=== PATIENT | female | born 1965 | race Asian ===

== ENCOUNTER → 2016-08-18 | Outpatient (CLI) | payer MEDICAID | END | disposition home or self-care (01) | LOC: LABWHC1 15:03 | PROVIDERS: ATTEND Internal Medicine Endocrinology, Diabetes & Metabolism | DX: E89.0 Postprocedural hypothyroidism (principal) | CPT/HCPCS: 36415; 82306; 84439; 84443; 84481 ==

== ENCOUNTER → 2016-11-24 | Outpatient (CLI) | payer MEDICAID ==
[2016-11-24 15:41] LABS: Basophils # (A) 0.1 k/uL (0-0.2); Basophils % (A) 1 %; CH 27.1; Eosinophils # (A) 0.4 k/uL (0-0.7); Eosinophils % (A) 5 %; HCT 43.7 % (34.0-46.0); HDW 2.25; HGB 14.1 gm/dL (11.4-16.0); Luc # (Auto) 0.18; Luc % (Auto) 2; Lymphocytes # (A) 2.4 k/uL (1.0-4.8); Lymphocytes % (A) 29 %; MCH 26.7 pg (25.0-35.0); MCHC 32.4 g/dL (31.0-37.0); MCV 82.4 fL (80.0-100.0); Mean Platelet Volume 7.7; Monocytes # (A) 0.5 k/uL (0-1.0); Monocytes % (A) 6 %; Neutrophils # (A) 4.6 k/uL (1.3-7.7); Neutrophils % (A) 57 %; RDW 13.6 % (11.5-15.5); WBC 8.1 k/uL (3.8-10.6); WBC (Perox) 8.05
[2016-11-24 16:00] LABS: ALT 49 U/L (9-52); AST 39 U/L (14-36); Alkaline Phosphatase 115 U/L (38-126); Anion Gap 13 mmol/L; Blood Urea Nitrogen 18 mg/dL (7-17); Calcium 10.2 mg/dL (8.4-10.2); Carbon Dioxide 25 mmol/L (22-30); Chloride 102 mmol/L (98-107); Cholesterol 177 mg/dL (<200); Glucose 90 mg/dL (74-99); HDL Cholesterol 104 mg/dL (40-60); Non-African American GFR(MDRD) >60 (>60 ml/min/1.73 sqM); Potassium 3.7 mmol/L (3.5-5.1); Sodium 140 mmol/L (137-145); Total Bilirubin 0.9 mg/dL (0.2-1.3); Total Protein 8.2 g/dL (6.3-8.2); Triglycerides 85 mg/dL (<150)
== END | disposition home or self-care (01) ==
LOC: LABWHC1 15:23
PROVIDERS: ATTEND Internal Medicine Endocrinology, Diabetes & Metabolism
DX: E78.00 Pure hypercholesterolemia, unspecified (principal); I10 Essential (primary) hypertension; E89.0 Postprocedural hypothyroidism
CPT/HCPCS: 36415; 80053; 80061; 84439; 84443; 85025

== ENCOUNTER → 2017-01-26 | Outpatient (CLI) | payer MEDICAID ==
--- NOTE | 2017-01-26 15:28 | XR ---
EXAMINATION TYPE: XR chest 2V DATE OF EXAM: 01/26/2017 COMPARISON: Prior chest x-ray 09/18/[address] 11/08/2014 HISTORY: Shortness of breath, chest pain TECHNIQUE: Frontal and lateral views of the chest are obtained. FINDINGS: There is no focal air space opacity, pleural effusion, or pneumothorax seen. The cardiac silhouette size is within normal limits. Spinal curvature is again noted. Pleural-based density at th e right lung apex superolaterally is stable. The osseous structures are intact. IMPRESSION: No acute cardiopulmonary process.
== END | disposition home or self-care (01) ==
LOC: RADXRMAIN 14:46
PROVIDERS: ATTEND Family Medicine
DX: R05 Cough (principal)
CPT/HCPCS: 71020

== ENCOUNTER 2017-02-07 07:10 | Day surgery (SDC) | payer MEDICAID ==
[2017-02-04 11:52] VITALS: BMI 23.9
[2017-02-07 07:48] VITALS: RESP 16; TEMP 98.3
[2017-02-07] MEDS ORDERED: SODIUM CHLORIDE 0.9% 500 ML IV ONE (07:58)
[2017-02-07] MEDS ORDERED: fentaNYL (PF) 50 MCG/ML 2 ML AMP ONE (08:21)
[2017-02-07] MEDS ORDERED: MIDAZOLAM 2 MG/2 ML VIAL ONE (08:22)
[2017-02-07] MEDS: MIDAZOLAM 2 MG/2 ML VIAL IVP ONE ×2 (08:50→08:56)
[2017-02-07] MEDS: fentaNYL (PF) 50 MCG/ML 2 ML AMP IVP ONE ×2 (08:50→08:56)
[2017-02-07] MEDS: BENZOCAINE SPRAY 1 SPRAY CAN MUCOUS MEM ONE ×2 (08:50→08:56)
[2017-02-07] MEDS ORDERED: MIDAZOLAM 2 MG/2 ML VIAL IVP ONE (08:58)
[2017-02-07 11:22] VITALS: BP 103/56; PULSE 49
--- NOTE | 2017-02-07 14:21 | ECHOT ---
TRANSESOPHAGEAL ECHOCARDIOGRAM DATE OF SERVICE: 02/07/2017 PERFORMING PHYSICIAN: CELI DOWELL MD, MITERING MACHINE OPERATOR. PROCEDURE PERFORMED: TRANSESOPHAGEAL ECHOCARDIOGRAM. INDICATION: This is a very pleasant 51-year-old female patient who suffered from TIA and a transesophageal echocardiogram to rule out any cardiac source of embolization. COMPLICATION: None. LEVEL OF SEDATION: Moderate with a sedation length of 20 minutes. PROCEDURE DESCRIPTION: After obtaining an informed consent, explaining the procedure, benefits, risks, complications and alternatives, the patient was brought to the transesophageal echocardiogram suite. A pulse oximetry and heart rate monitors were attached to the patient prior to the procedure. The patient's throat was sprayed using lidocaine locally. Following that, the patient was turned into left lateral position. A bite guard was placed and the patient was then sedated with the above doses of Versed and fentanyl in divided doses. Following that, the transesophageal echocardiogram probe was advanced through the bite guard into the mid esophagus where 2-D echocardiogram images as well as color Doppler images of various cardiac structures were obtained. We evaluated the interatrial septum using 2-D echocardiogram, color Doppler, and contrast study. The procedure was completed. There were no complications. FINDINGS: The left ventricular dimension and systolic function appear to be within normal limits with the ejection fraction appeared to be in the range of 55% to 60% with a normal wall motion. The right ventricle is of normal size and function but the left atrium appeared to be within normal limits for dimension with ( ) appendage appeared to be intact without any evidence of shunt. The left atrial appendage appeared to be intact without any evidence of thrombus. The intraatrial septum appeared to be intact without any evidence of shunt. The aortic valve is trileaflet valve without stenosis or regurgitation. The mitral valve seems to be normal with trace MR, tricuspid valve and pulmonic valve. CONCLUSION: 1. There is no evidence of cardiac source of embolization. 2. Intact interatrial septum without any evidence of shunt. 3. Normal left atrial appendage without any evidence of thrombus. 4. Normal left ventricular dimension and systolic function. 5. Normal cardiac chamber sizes. 6. Normal intracardiac valve. 7. No evidence of pericardial effusion. MTDD
== END 2017-02-07 11:00 | disposition home or self-care (01) ==
LOC: CATHCVL 07:10
PROVIDERS: ATTEND Internal Medicine Interventional Cardiology
DX: G45.9 Transient cerebral ischemic attack, unspecified (principal); I74.9 Embolism and thrombosis of unspecified artery; I10 Essential (primary) hypertension; E78.5 Hyperlipidemia, unspecified; Z82.49 Family history of ischemic heart disease and other diseases of the circulatory system; Z79.82 Long term (current) use of aspirin; Z79.899 Other long term (current) drug therapy
CPT/HCPCS: 93312; 93320; 93325; J2250; J3010

== ENCOUNTER → 2017-07-25 | Outpatient (CLI) | payer MEDICAID ==
[2017-07-25 09:59] LABS: Appearance,Urine Clear (Clear); Bilirubin,Urine Negative (Negative); Blood,Urine Negative (Negative); Color,Urine Yellow; Glucose,Urine (UA) Negative (Negative); Ketones,Urine Negative (Negative); Leukocyte Esterase,Urine Negative (Negative); Nitrite,Urine Negative (Negative); Protein,Urine Negative (Negative); Specific Gravity,Urine 1.014 (1.001-1.035); Urobilinogen,Urine <2.0 mg/dL (<2.0)
[2017-07-25 10:03] LABS: HCT 44.9 % (34.0-46.0); HGB 14.3 gm/dL (11.4-16.0); MCH 26.3 pg (25.0-35.0); MCHC 31.9 g/dL (31.0-37.0); MCV 82.3 fL (80.0-100.0); Mean Platelet Volume 7.5; Platelet Count 236 k/uL (150-450); RBC 5.46 m/uL (3.80-5.40); RDW 13.6 % (11.5-15.5); WBC 6.8 k/uL (3.8-10.6)
[2017-07-25 10:06] LABS: Prothrombin Time 10.1 sec (9.0-12.0)
--- NOTE | 2017-07-25 10:11 | XR ---
EXAMINATION TYPE: XR chest 2V DATE OF EXAM: 07/25/2017 COMPARISON: 01/26/2017, 11/08/2014 TECHNIQUE: PA and lateral views submitted. HISTORY: Presurgical FINDINGS: The lungs are clear and there is no pneumothorax, pleural effusion, or focal pneumonia. There is a stable appearing apical pleural-based mass within the right upper lobe. Pleural-based density also no thee on the left within the apex. Findings are stable dating back to 2014. Curvature the spine noted. No overt failure. IMPRESSION: 1. No acute process. Stable apical pleural-based mass previously described by CT scan unchanged from previous x-ray.
[2017-07-25 11:13] LABS: Anion Gap 11 mmol/L; Blood Urea Nitrogen 17 mg/dL (7-17); Carbon Dioxide 31 mmol/L (22-30); Chloride 101 mmol/L (98-107); Potassium 4.3 mmol/L (3.5-5.1); Sodium 143 mmol/L (137-145)
[2017-07-25 11:18] LABS: T4, Free (Free Thyroxine) 1.41 ng/dL (0.78-2.19)
== END | disposition home or self-care (01) ==
LOC: LABWHC1 08:57
PROVIDERS: ATTEND Internal Medicine Endocrinology, Diabetes & Metabolism
DX: R91.8 Other nonspecific abnormal finding of lung field (principal); E89.0 Postprocedural hypothyroidism; E78.2 Mixed hyperlipidemia; E55.9 Vitamin D deficiency, unspecified; L72.3 Sebaceous cyst
CPT/HCPCS: 36415; 71046; 80051; 81003; 82306; 82565; 84439; 84443; 84481; 84520; 85027; 85610; 85730; 86900; 86901; 87070; 93005

== ENCOUNTER → 2017-08-15 | Day surgery (SDC) | payer MEDICAID ==
[2017-08-12 10:12] VITALS: BMI 23.9
[~2017-08-15] MED LIST: BUPIVACAINE (PF) 0.5% 30 ML VIAL SQ ONE; DEXAMETHASONE SOD PHOSPHATE 10 MG/ML 1 ML VIAL IV ONE; LACTATED RINGERS 1,000 ML IV SCH; LIDOCAINE 1% (PF) 10MG/ML VIAL SQ ONE; LIDOCAINE 1% 20 ML VIAL (10MG/ML) FOR IV START INTRADERMA PRN; MIDAZOLAM 2 MG/2 ML VIAL ONE; MORPHINE SULFATE 2 MG/ML SYRINGE IV PRN; PROPOFOL 10 MG/ML 20 ML VIAL IV ONE; Pre Op ABX Message 1 EACH MISC MISCELLANE ONE; fentaNYL (PF) 50 MCG/ML 2 ML AMP ONE
[2017-08-15 12:41] VITALS: TEMP 97.8
[2017-08-15 13:40] VITALS: RESP 16
[2017-08-15 14:24] VITALS: BP 122/78; PULSE 60
--- NOTE | 2017-08-16 10:23 | OP ---
OPERATIVE REPORT SURGERY DATE: 08/15/2017 PREOPERATIVE DIAGNOSES: 1. Left carpal tunnel syndrome. 2. Left index trigger finger. 3. Left middle trigger finger. FINAL DIAGNOSES: 1. Left carpal tunnel syndrome. 2. Left index trigger finger. 3. Left middle trigger finger. PROCEDURES: 1. Left carpal tunnel release. 2. Left index finger trigger release. 3. Left middle trigger finger release. GROSS PATHOLOGY: Preoperatively there was a mass at the base of the middle finger which was suspected to be a potential ganglion cyst. It turned out to be simply thickened A1 michelle and therefore there was no ganglion cyst and there was nothing to resect per se and no specimen was delivered. DESCRIPTION OF PROCEDURE: The patient is brought to the Operating Room. Under satisfactory anesthesia, in the supine position, the operative field is prepped and draped in the usual fashion. A one inch incision is made just ulnar to the thenar crease, just distal to the distal palmar crease. This is carried down through the subcutaneous tissue. Electrocautery is utilized to control any small vessels that may be oozing around the skin incision. Dissection is then carried down to the expansion of the palmaris longus, where the expansion is split in the line of its fibers and dissection is then carried down to the transverse carpal ligament. The ligament is then carefully transected until the nerve can be brought into view. Then with the nerve retracted, the distal and proximal portions of the carpal canal are released with a Metzenbaum scissors. Having completed this, the area is then thoroughly irrigated. The skin incision and wound edges are injected with Marcaine. At the approximation is done with interrupted nylon sutures in a vertical mattress fashion. The patient is then transferred to the Recovery Room in good condition. The following procedure was done identically for both the left middle and left index finger. A transverse incision was made in the proximal skin crease of the middle finger. Blunt dissection was taken through the subcutaneous tissue to identify the neurovascular bundles. They were kept in view and gently retracted out of harms way while a longitudinal release of the A1 michelle was performed. The flexor pollicis longus was examined and slight swelling was noted but the tendon was intact. The tendon was gently retracted from the wound to ensure no adhesion. The wound was then thoroughly irrigated, tourniquet released. Hemostasis was acquired and the skin was closed with 5-0 nylon suture. Soft bulky dressing applied. The patient was taken to the recovery room in satisfactory condition. HAI / ADALI: [id number] /
== END | disposition home or self-care (01) ==
LOC: OR 11:14
PROVIDERS: ATTEND Orthopaedic Surgery Hand Surgery
DX: G56.02 Carpal tunnel syndrome, left upper limb (principal); M65.322 Trigger finger, left index finger; M65.332 Trigger finger, left middle finger; I10 Essential (primary) hypertension; E78.00 Pure hypercholesterolemia, unspecified; E03.9 Hypothyroidism, unspecified; M85.80 Other specified disorders of bone density and structure, unspecified site; I51.9 Heart disease, unspecified; Z86.73 Personal history of transient ischemic attack (TIA), and cerebral infarction without residual deficits; Z79.82 Long term (current) use of aspirin; Z79.899 Other long term (current) drug therapy; Z79.890 Hormone replacement therapy
CPT/HCPCS: 64721; 26055 ×2; J2250; J1100; J3010; J2001; J2704

== ENCOUNTER → 2017-09-07 | Outpatient (CLI) | payer MEDICAID ==
[2017-09-07 10:47] LABS: Cholesterol 277 mg/dL (<200); HDL Cholesterol 82 mg/dL (40-60); LDL Cholesterol,Calculated 140 mg/dL (0-99); Triglycerides 276 mg/dL (<150)
== END | disposition home or self-care (01) ==
LOC: LABWHC1 10:12
PROVIDERS: ATTEND Family Medicine
DX: E78.00 Pure hypercholesterolemia, unspecified (principal)
CPT/HCPCS: 36415; 80061

== ENCOUNTER → 2017-09-07 | Outpatient (CLI) | payer MEDICAID ==
[2017-09-07 10:39] LABS: HCT 39.9 % (34.0-46.0); HGB 13.1 gm/dL (11.4-16.0); MCH 25.5 pg (25.0-35.0); MCHC 32.7 g/dL (31.0-37.0); MCV 77.9 fL (80.0-100.0); Mean Platelet Volume 7.9; Platelet Count 237 k/uL (150-450); RBC 5.12 m/uL (3.80-5.40); RDW 13.4 % (11.5-15.5); WBC 8.1 k/uL (3.8-10.6)
[2017-09-07 10:47] LABS: Anion Gap 14 mmol/L; Blood Urea Nitrogen 18 mg/dL (7-17); Carbon Dioxide 26 mmol/L (22-30); Chloride 102 mmol/L (98-107); Sodium 142 mmol/L (137-145)
== END | disposition home or self-care (01) ==
LOC: LABPAT 10:10
PROVIDERS: ATTEND Internal Medicine Interventional Cardiology
DX: Z01.812 Encounter for preprocedural laboratory examination (principal); R07.9 Chest pain, unspecified
CPT/HCPCS: 80051; 82565; 84520; 85027

== ENCOUNTER → 2017-09-12 | Day surgery (SDC) | payer MEDICAID ==
[2017-09-07 15:36] VITALS: BMI 24.7
[~2017-09-12] MED LIST changes: +ALPRAZolam 0.25 MG TAB PO PRN; +ASPIRIN 325 MG TAB PO ONE; -BUPIVACAINE (PF) 0.5% 30 ML VIAL SQ ONE; -DEXAMETHASONE SOD PHOSPHATE 10 MG/ML 1 ML VIAL IV ONE; +HEPARIN SODIUM 1,000 UN/ML (10ML VL) IV ONE; +IOPAMIDOL-370 125ML BTL INJ ONE; -LACTATED RINGERS 1,000 ML IV SCH; -LIDOCAINE 1% (PF) 10MG/ML VIAL SQ ONE; -LIDOCAINE 1% 20 ML VIAL (10MG/ML) FOR IV START INTRADERMA PRN; +LIDOCAINE 2% INJ 20 MG/ML SQ ONE; -MIDAZOLAM 2 MG/2 ML VIAL ONE; -MORPHINE SULFATE 2 MG/ML SYRINGE IV PRN; -PROPOFOL 10 MG/ML 20 ML VIAL IV ONE; -Pre Op ABX Message 1 EACH MISC MISCELLANE ONE; +RX INFO: IV CONTRAST WAS GIVEN 1 EACH MISC MISCELLANE PRN; +SODIUM CHLORIDE 0.9% 1,000 ML IV ONE; +SODIUM CHLORIDE 0.9% 1,000 ML IV SCH; +SODIUM CHLORIDE 0.9% 1,000 ML in EMPTY BAG 1 BAG IV ONE; -fentaNYL (PF) 50 MCG/ML 2 ML AMP ONE
[2017-09-12 10:52] VITALS: TEMP 98
[2017-09-12] MEDS: MIDAZOLAM 2 MG/2 ML VIAL IV ONE ×2 (11:23→11:29)
[2017-09-12] MEDS: VERAPAMIL SYRINGE (5 MG/10 ML) INTRAARTER ONE ×2 (11:30→11:38)
--- NOTE | 2017-09-12 12:37 | CC ---
CARDIAC CATHETERIZATION REPORT DATE OF SERVICE: 09/12/2017 PERFORMING PHYSICIAN: Vladimir Martel MD, cctv technician. PROCEDURE PERFORMED: 1. Selective right and left coronary angiogram. 2. Left heart catheterization. INDICATION: This is a pleasant 51-year-old female patient who continues to have chest discomfort in spite of normal stress test. Because of that, a heart catheterization was recommended. APPROACH: Right radial artery. COMPLICATION: None. LEVEL OF SEDATION: Moderate with sedation length of 13 minutes. PROCEDURE DESCRIPTION: After obtaining an informed consent, the patient was brought to cardiac industrial laborer. The right radial artery was cannulated using micropuncture technique and a micropuncture wire passed easily, then I placed a 6-Hungarian sheath in the right radial artery. After that, I did selective right and left coronary angiogram using JR4 and JL3.5 catheters. After that I did left heart catheterization using the JR4, which flipped into the LV then I did pullback per protocol. The procedure was completed without any complication. SELECTIVE CORONARY ANGIOGRAM: 1. The RCA is a large caliber vessel and it is a dominant vessel. It is angiographically normal. It bifurcates into PDA and PLV branches both are angiographically normal. 2. The left main is angiographically normal. It bifurcates into the circumflex and left anterior descending artery. 3. The left circumflex is a large caliber vessel. It is a nondominant vessel. The proximal circ is angiographically normal. The mid circ is normal and gives rise into a large OM branch which bifurcates into 2 branches both are angiographically normal and the circ continued after that as a small-caliber vessel in the AV groove. 4. The LAD: The proximal LAD appeared to be angiographically normal. It gives rise into a large diagonal branch which is high diagonal which seems to be angiographically normal. The LAD also gives rise into a second diagonal branch which seems to be angiographically normal. The mid and distal portion are angiographically normal. 5. HEMODYNAMIC: The left ventricular end-diastolic pressure was 12 mmHg and no gradient was identified across the aortic valve. CONCLUSION: 1. Normal coronary angiogram. 2. Normal left ventricular systolic indication. MMODL / IJN: [id number] /
--- NOTE | 2017-09-12 12:37 | LTR ---
September 12, 2017 Re: Shawna Castaneda Dear Dr. Sullivan: I had the pleasure of seeing Shawna Castaneda at [facility]. She continues to have chest discomfort, which seems to be quite concerning to her. She is quite concerned about severe underlying coronary artery disease and for that reason I did perform a heart catheterization and that showed normal coronaries. I want to thank you for allowing us to participate in her care and please do not hesitate to call if you have any question or concern. Sincerely, MD HAI Romero / ADALI: [id number] /
[2017-09-12 12:47] VITALS: RESP 18
[2017-09-12 12:49] VITALS: BP 103/74; PULSE 64
== END ==
LOC: CATHCVL 10:33
PROVIDERS: ATTEND Internal Medicine Interventional Cardiology
DX: R07.89 Other chest pain (principal); I10 Essential (primary) hypertension; E78.5 Hyperlipidemia, unspecified; Z86.73 Personal history of transient ischemic attack (TIA), and cerebral infarction without residual deficits; Z82.49 Family history of ischemic heart disease and other diseases of the circulatory system; R10.13 Epigastric pain; M54.9 Dorsalgia, unspecified; R61 Generalized hyperhidrosis; Z79.82 Long term (current) use of aspirin; Z79.899 Other long term (current) drug therapy
CPT/HCPCS: 93458; C1894; C1769; J2001; J2250; J1644; Q9967

== ENCOUNTER → 2017-10-25 | Outpatient (CLI) | payer MEDICAID ==
[2017-10-25 16:23] LABS: T4, Free (Free Thyroxine) 1.3 ng/dL (0.78-2.19)
== END | disposition home or self-care (01) ==
LOC: LABWHC1 15:06
PROVIDERS: ATTEND Internal Medicine Endocrinology, Diabetes & Metabolism
DX: E89.0 Postprocedural hypothyroidism (principal)
CPT/HCPCS: 36415; 84439; 84443

== ENCOUNTER 2018-04-07 13:31 | Emergency (ER) | payer MEDICAID, OTHER ==
--- NOTE | 2018-04-07 14:20 | ED ---
General Adult HPI - General Chief complaint: Head Injury Stated complaint: Head injury Time Seen by Provider: 04/07/18 13:56 Source: patient, RN notes reviewed Mode of arrival: ambulatory Limitations: no limitations - History of Present Illness Initial comments: Patient is a 52 year old female with history of TIA who presents to the emergency department with complaints of hitting her head against a wall 3 days ago at work. She developed headache, drowsiness, dizziness, nausea and slight left-sided neck pain. She has tenderness over the left side of her head where she hit it. She takes aspirin 81 mg; no other blood thinners. Patient denies loss of consciousness, fever, chills, shortness of breath, chest pain, back pain , abdominal pain, vomiting, numbness or tingling, constipation or diarrhea, visual changes, or any other complaints. - Related Data Home Medications Medication Instructions Recorded Confirmed Calcium Carbonate [Calcium] 600 mg PO HS 09/18/15 09/12/17 Cholecalciferol [Vitamin D3] 2,000 unit PO HS 09/18/15 09/12/17 Hydrochlorothiazide [Hydrodiuril] 12.5 mg PO HS 09/18/15 09/12/17 Levothyroxine Sodium [Tirosint] 88 mcg PO QAM 09/18/15 09/12/17 Lisinopril 10 mg PO HS 02/04/17 09/12/17 Multivit with Calcium,Iron,Min 1 each PO DAILY 02/04/17 09/12/17 [Women's Multivitamin] Biotin 10,000 mcg PO DAILY 09/07/17 09/12/17 Previous Rx's Medication Instructions Recorded Aspirin EC [Ecotrin Low Dose] 81 mg PO DAILY #30 tablet. 09/19/15 Allergies Allergy/AdvReac Type Severity Reaction Status Date / Time No Known Allergies Allergy Verified 04/07/18 13:48 Review of Systems ROS Statement: Those systems with pertinent positive or pertinent negative responses have been documented in the HPI. ROS Other: All systems not noted in ROS Statement are negative. Past Medical History Past Medical History: CVA/TIA, Hypertension, Thyroid Disorder Additional Past Medical History / Comment(s): TIA <yr. ago, wore "heart monitor " recently History of Any Multi-Drug Resistant Organisms: None Reported Past Surgical History: Breast Surgery Additional Past Surgical History / Comment(s): breast implants, neck tumor biopsy, suhail hand( ring finger) trigger finger sx, sinus sx. Past Anesthesia/Blood Transfusion Reactions: No Reported Reaction Past Psychological History: No Psychological Hx Reported Smoking Status: Never smoker Past Alcohol Use History: None Reported Past Drug Use History: None Reported - Past Family History Father Family Medical History: Cancer, Hypertension, Liver Disease Additional Family Medical History / Comment(s): from liver cancer Mother Family Medical History: CVA/TIA Additional Family Medical History / Comment(s): from stroke at age 55 General Exam Limitations: no limitations General appearance: alert, in no apparent distress Head exam: Present: atraumatic, normocephalic, other (Tender to palpation over the left parietal area. No lacerations.) Eye exam: Present: normal appearance, PERRL, EOMI Pupils: Present: normal accommodation ENT exam: Present: normal exam, normal oropharynx, TM's normal bilaterally, normal external ear exam Neck exam: Present: normal inspection, full ROM, other (No midline bony tenderness. No tenderness to palpation over the neck musculature.) Respiratory exam: Present: normal lung sounds bilaterally Cardiovascular Exam: Present: regular rate, normal rhythm Extremities exam: Present: normal inspection, full ROM Neurological exam: Present: alert, oriented X3, CN II-XII intact, normal gait Psychiatric exam: Present: normal affect, normal mood Skin exam: Present: warm, dry Course Vital Signs 04/07/18 13:48 Temperature 99 F Pulse Rate 63 Respiratory 18 Rate Blood Pressure 125/85 O2 Sat by Pulse 98 Oximetry Medical Decision Making - Medical Decision Making Patient is a 52 year old female who hit her head 3 days ago and has had headaches, drowsiness, and dizziness since then. She does complain of some left- sided neck pain; however she is alert and oriented, she does not have any midline tenderness, no neurological deficits, no distracting injuries and has full ROM of her neck. Therefore, no imaging of the neck is necessary at this time. CT of the head was normal. She likely has a concussion and will need to be cleared by [employer] prior to returning to work. She was given Motrin for her headache. She did not want Tylenol. Disposition Clinical Impression: Concussion without loss of consciousness Disposition: HOME SELF-CARE Condition: Good Instructions: Concussion (ED) Additional Instructions: Follow-up with PCP in 2 days. Follow up with [employer] tomorrow for work restrictions. Return to emergency department if symptoms worsen or any other concerns. Is patient prescribed a controlled substance at d/c from ED?: No Referrals: Janis Sullivan MD [Primary Care Provider] - 1-2 days Time of Disposition: 16:19
--- NOTE | 2018-04-07 15:14 | CT ---
EXAMINATION TYPE: CT brain wo con DATE OF EXAM: 04/07/2018 COMPARISON: 09/18/2015 INDICATION: Head injury with dizziness. DLP: 1001.2 mGycm, Automated exposure control for dose reduction was used. CONTRAST: None CT of the brain is performed utilizing 3 mm thick sections through the posterior fossa and 3 mm thick sections through the remaining calvarium. Study is performed within 24 hours of arrival to the hosp ital. No abnormal hyperdensity is present to suggest an acute intracranial hemorrhage. No mass lesion is evident. No acute infarcts are evident. Ventricles and sulci are appropriate for the patient age. Paranasal sinuses and mastoid air cells within the [id number] are clear. There is been prior uncin ectomies. IMPRESSIONS: 1. Normal CT Brain
[2018-04-07] MEDS ORDERED: IBUPROFEN 400 MG TAB PO STA (16:07)
[2018-04-07 16:20] VITALS: BP 130/80; PULSE 70; RESP 16; TEMP 98.8
== END 2018-04-07 16:20 | disposition home or self-care (01) ==
LOC: EC 13:31
DX: S06.0X0A Concussion without loss of consciousness, initial encounter (principal); M54.2 Cervicalgia; I10 Essential (primary) hypertension; E07.9 Disorder of thyroid, unspecified; Z79.82 Long term (current) use of aspirin; Z79.899 Other long term (current) drug therapy; W22.8XXA Striking against or struck by other objects, initial encounter; Y93.89 Activity, other specified; Y92.69 Other specified industrial and construction area as the place of occurrence of the external cause; Y99.0 Civilian activity done for income or pay
CPT/HCPCS: 70450; 99283

== ENCOUNTER → 2018-04-14 | Outpatient (CLI) | payer MEDICAID | LOC: LABWHC1 14:34 | PROVIDERS: ATTEND Internal Medicine Endocrinology, Diabetes & Metabolism | DX: E89.0 Postprocedural hypothyroidism (principal) | CPT/HCPCS: 36415; 82306; 84439; 84443; 84481 ==

== ENCOUNTER → 2019-06-22 | Outpatient (CLI) | payer MEDICAID ==
[2019-06-22 18:59] LABS: T4, Free (Free Thyroxine) 1.4 ng/dL (0.80-1.80)
== END | disposition home or self-care (01) ==
LOC: LABWHC1 14:46
PROVIDERS: ATTEND Internal Medicine Endocrinology, Diabetes & Metabolism
DX: E55.9 Vitamin D deficiency, unspecified (principal); E89.0 Postprocedural hypothyroidism
CPT/HCPCS: 36415; 82306; 84439; 84443; 84481

== ENCOUNTER → 2019-07-13 | Outpatient (CLI) | payer MEDICAID ==
[2019-07-13 11:44] LABS: Basophils % (A) 1 %; Eosinophils # (A) 0.6 k/uL (0-0.7); Eosinophils % (A) 12 %; HGB 14.6 gm/dL (11.4-16.0); Lymphocytes # (A) 1.8 k/uL (1.0-4.8); Lymphocytes % (A) 33 %; MCH 27.2 pg (25.0-35.0); MCHC 33.1 g/dL (31.0-37.0); MCV 82.1 fL (80.0-100.0); Mean Platelet Volume 8.2; Monocytes # (A) 0.3 k/uL (0-1.0); Monocytes % (A) 6 %; Neutrophils # (A) 2.5 k/uL (1.3-7.7); Neutrophils % (A) 46 %; Platelet Count 202 k/uL (150-450); RBC 5.35 m/uL (3.80-5.40); RDW 13.5 % (11.5-15.5); WBC 5.5 k/uL (3.8-10.6)
[2019-07-13 17:02] LABS: African American GFR (CKD) 96.9 (60.0-200.0); Albumin 4.9 g/dL (3.80-4.90); Albumin/Globulin Ratio 2.13 (1.60-3.17); Anion Gap 10.6 mmol/L (4.00-12.00); BUN/Creat Ratio 16.25 Ratio (12.00-20.00); Calcium 9.6 mg/dL (8.7-10.3); Carbon Dioxide 26.4 mmol/L (21.6-31.8); Chol/HDL Ratio 1.8; Globulin 2.3 g/dL (1.6-3.3); LDL Cholesterol,Calculated 58.2 mg/dL (0.0-131.0); Non-African American GFR(CKD) 83.6 (60.0-200.0); Potassium 3.9 mmol/L (3.5-5.5); Total Bilirubin 0.8 mg/dL (0.3-1.2); Total Protein 7.2 g/dL (6.2-8.2); VLDL Calculation 19.8 mg/dL (5.00-40.00)
== END ==
LOC: LABWHC1 10:46
PROVIDERS: ATTEND Family Medicine
DX: I10 Essential (primary) hypertension (principal); E78.00 Pure hypercholesterolemia, unspecified; Z13.29 Encounter for screening for other suspected endocrine disorder
CPT/HCPCS: 36415; 80053; 80061; 84439; 84443; 85025

== ENCOUNTER → 2019-07-27 | Outpatient (CLI) | payer MEDICAID ==
--- NOTE | 2019-07-27 11:56 | ECHOS ---
STRESS ECHOCARDIOGRAM DATE OF SERVICE: 07/27/2019 INDICATIONS: Chest pain. MEDICATIONS: Losartan, Lipitor, Synthroid, aspirin. BASELINE HEART RATE: 60 BASELINE BLOOD PRESSURE: 127/82 MAXIMUM HEART RATE: 153 MAXIMUM BLOOD PRESSURE: 173/92 85% MPHR: 141 100% MPHR: 166 METS: 7.9 MAXIMUM STAGE REACHED: III TOTAL EXERCISE TIME: 6 minutes 40 seconds CLINICAL INFORMATION: Baseline EKG revealed sinus mechanism. No significant ST-T changes. Mild right ventricular conduction delay noted. The patient walked for 6 minutes 40 seconds, achieved a maximal heart rate of 153 beats per minute which is more than 85% of predicted maximal. She developed fatigue and shortness of breath, but there was no angina or arrhythmia. EKG had some baseline artifact, but there is no evidence to suggest any ischemia. By EKG rate is a negative stress test with fair exercise capacity. Baseline echo images revealed normal wall motion and wall thickening of all segments. At peak exercise, there was good augmentation of left ventricular wall motion and wall thickening of all segments suggesting that there is no evidence of any stress-induced ischemia on this study. FINAL IMPRESSION: 1. Fair exercise capacity. Negative stress test by EKG criteria. 2. Normal stress echocardiogram. MMODL / IJN: [id number] /
--- NOTE | 2019-07-28 14:29 | ECHOF ---
Referral Reason:R07.89 chest pain MEASUREMENTS -------- HEIGHT: 160.0 cm WEIGHT: 62.1 kg BP: RVIDd: 2.4 cm (< 3.3) IVSd: 1.2 cm (0.6 - 1.1) LVIDd: 3.7 cm (3.9 - 5.3) LVPWd: 1.4 cm (0.6 - 1.1) IVSs: 1.6 cm LVIDs: 2.1 cm LVPWs: 1.7 cm LAESV Index (A-L): 21.63 ml/m Ao Diam: 3.1 cm (2.0 - 3.7) AV Cusp: 1.9 cm (1.5 - 2.6) MV EXCURSION: 18.330 mm (> 18.000) MV EF SLOPE: 93 mm/s (70 - 150) EPSS: 0.2 cm MV E Blake: 1.18 m/s MV DecT: 172 ms MV A Blake: 0.71 m/s MV E/A Ratio: 1.66 RAP: 5.00 mmHg RVSP: 26.66 mmHg FINDINGS -------- Resting bradycardia (HR<60bpm). This was a technically adequate study. Pt. Has Breast inplants The left ventricular size is normal. There is mild concentric left ventricular hypertrophy. Overa ll left ventricular systolic function is normal with, an EF between 60 - 65 %. The diastolic fillin g pattern is normal for the age of the patient 14.04. The right ventricle is normal in size. Normal LA size by volume 22+/-6 ml/m2. The right atrial size is normal. Interatrial and interventricular septum intact. There is no evidence of aortic regurgitation. There is no evidence of aortic stenosis. No mitral regurgitation. Mild tricuspid regurgitation present. There is no evidence of pulmonary hypertension. The right v entricular systolic pressure, as measured by Doppler, is 26.66mmHg. There is no pulmonic regurgitation present. The aortic root size is normal. Normal inferior vena cava with normal inspiratory collapse consistent with estimated right atrial pre ssure of 5 mmHg. There is no pericardial effusion. CONCLUSIONS -------- 1. Resting bradycardia (HR<60bpm). 2. This was a technically adequate study. 3. Pt. Has Breast inplants 4. The left ventricular size is normal. 5. There is mild concentric left ventricular hypertrophy. 6. Overall left ventricular systolic function is normal with, an EF between 60 - 65 %. 7. The diastolic filling pattern is normal for the age of the patient 14.04 8. The right ventricle is normal in size. 9. Normal LA size by volume 22+/-6 ml/m2. 10. The right atrial size is normal. 11. Interatrial and interventricular septum intact. 12. There is no evidence of aortic regurgitation. 13. There is no evidence of aortic stenosis. 14. No mitral regurgitation. 15. Mild tricuspid regurgitation present. 16. There is no evidence of pulmonary hypertension. 17. The right ventricular systolic pressure, as measured by Doppler, is 26.66mmHg. 18. There is no pulmonic regurgitation present. 19. The aortic root size is normal. 20. Normal inferior vena cava with normal inspiratory collapse consistent with estimated right atrial pressure of 5 mmHg. 21. There is no pericardial effusion. INSTALL TECHNICIAN: Blanca Garcia RDCS
== END | disposition home or self-care (01) ==
LOC: RADECHMAIN 07:46
PROVIDERS: ATTEND Internal Medicine Interventional Cardiology
DX: I10 Essential (primary) hypertension (principal); E78.5 Hyperlipidemia, unspecified; R07.89 Other chest pain; I07.1 Rheumatic tricuspid insufficiency
CPT/HCPCS: 93306; 93351

== ENCOUNTER → 2020-03-11 | Outpatient (CLI) | payer MEDICAID ==
--- NOTE | 2020-03-11 13:30 | XR ---
Abdomen HISTORY: Constipation, left lower quadrant pain Frontal view of the abdomen submitted on a single image, no comparisons There is a calcification in the left paraspinal location between the L3 and L4 transverse process whi ch is oval measuring 12 x 3 mm. Calcification in the gluteal regions may represent granulomas. There is a spinal curvature. Bone mineralization is reduced. No pneumoperitoneum or bowel obstruction. Ther e is retained fecal debris throughout the distribution of the colon. Lung bases not included on the e xam. Overlying artifacts are present. IMPRESSION: Correlate for fecal stasis. Indeterminate left paraspinal ossification.
== END | disposition home or self-care (01) ==
LOC: RADXRMAIN 12:46
PROVIDERS: ATTEND Family Medicine
DX: K59.00 Constipation, unspecified (principal); R10.814 Left lower quadrant abdominal tenderness
CPT/HCPCS: 74018

== ENCOUNTER 2020-04-18 10:25 | Day surgery (SDC) | payer MEDICAID ==
[2020-04-17 10:24] VITALS: BMI 24.4
[~2020-04-18 10:25] MED LIST changes: -ALPRAZolam 0.25 MG TAB PO PRN; -ASPIRIN 325 MG TAB PO ONE; -HEPARIN SODIUM 1,000 UN/ML (10ML VL) IV ONE; -IOPAMIDOL-370 125ML BTL INJ ONE; +LACTATED RINGERS 1,000 ML IV SCH; -LIDOCAINE 2% INJ 20 MG/ML SQ ONE; -RX INFO: IV CONTRAST WAS GIVEN 1 EACH MISC MISCELLANE PRN; -SODIUM CHLORIDE 0.9% 1,000 ML IV ONE; -SODIUM CHLORIDE 0.9% 1,000 ML IV SCH; -SODIUM CHLORIDE 0.9% 1,000 ML in EMPTY BAG 1 BAG IV ONE
[2020-04-18 10:48] VITALS: RESP 20; TEMP 97.2
[2020-04-18] MEDS ORDERED: PROPOFOL 10 MG/ML 20 ML VIAL IV ONE (11:57)
--- NOTE | 2020-04-18 12:11 | P.PCN ---
Date of Procedure: 04/18/20 Procedure(s) Performed: BRIEF HISTORY: Patient is a 54-year-old pleasant female scheduled for an elective colonoscopy as a part of evaluation of left lower quadrant abdominal pain and change in bowel habits for the last few months duration. PROCEDURE PERFORMED: Colonoscopy. PREOPERATIVE DIAGNOSIS: Left lower quadrant abdominal pain and change in bowel habits IV sedation per Anesthesia. PROCEDURE: After informed consent was obtained, the patient, was brought into the endoscopy unit. IV sedation was administered by Anesthesia under continuous monitoring. Digital rectal examination was normal. Initially the Olympus CF-160 flexible video colonoscope was then inserted in the rectum, gradually advanced into the cecum without any difficulty. Careful examination was performed as the scope was gradually being withdrawn. Ileocecal valve and the appendiceal orifice were visualized and appeared normal. Prep was excellent. Mucosa of the cecum, ascending colon, transverse colon, descending colon, sigmoid colon, and rectum appeared normal. Retroflexion was performed in the rectum and small internal hemorrhoids were seen. The patient tolerated the procedure well. IMPRESSION: Normal-appearing colon from rectum to cecum with no evidence of colorectal neoplasia. RECOMMENDATIONS: Findings of this examination were discussed with the patient as well as her family. She was advised to have a repeat screening colonoscopy in 10 years or earlier if she has any symptoms..
[2020-04-18 12:29] VITALS: BP 102/70; PULSE 53
== END 2020-04-18 12:45 | disposition home or self-care (01) ==
LOC: ORWHC2ENDO 10:25
PROVIDERS: ATTEND Internal Medicine Gastroenterology
DX: K64.8 Other hemorrhoids (principal); I10 Essential (primary) hypertension; E78.5 Hyperlipidemia, unspecified; Z86.73 Personal history of transient ischemic attack (TIA), and cerebral infarction without residual deficits; Z79.890 Hormone replacement therapy; Z79.899 Other long term (current) drug therapy
CPT/HCPCS: 45378; J2704

== ENCOUNTER → 2020-06-17 | Outpatient (CLI) | payer MEDICAID ==
[2020-06-17 16:36] LABS: Chol/HDL Ratio 2.41; LDL Cholesterol,Calculated 66.6 mg/dL (0.0-131.0); VLDL Calculation 19.4 mg/dL (5.00-40.00)
[2020-06-17 16:44] LABS: T4, Free (Free Thyroxine) 1.2 ng/dL (0.80-1.80)
== END | disposition home or self-care (01) ==
LOC: LABWHC1 10:06
PROVIDERS: ATTEND Internal Medicine Endocrinology, Diabetes & Metabolism
DX: E55.9 Vitamin D deficiency, unspecified (principal); E89.0 Postprocedural hypothyroidism; Z13.220 Encounter for screening for lipoid disorders
CPT/HCPCS: 36415; 80061; 82306; 84439; 84443; 84481

== ENCOUNTER → 2020-09-10 | Outpatient (CLI) | payer MEDICAID ==
[2020-09-11 02:41] LABS: T4, Free (Free Thyroxine) 1.4 ng/dL (0.80-1.80)
== END | disposition home or self-care (01) ==
LOC: LABWHC1 14:59
PROVIDERS: ATTEND Internal Medicine Endocrinology, Diabetes & Metabolism
DX: E55.9 Vitamin D deficiency, unspecified (principal); E89.0 Postprocedural hypothyroidism
CPT/HCPCS: 36415; 84439; 84443; 84481

== ENCOUNTER → 2020-11-04 | Outpatient (CLI) | payer MEDICAID ==
[2020-11-04 20:41] LABS: Chol/HDL Ratio 1.98; LDL Cholesterol,Calculated 73.8 mg/dL (0.0-131.0); VLDL Calculation 18.2 mg/dL (5.00-40.00)
[2020-11-04 20:48] LABS: T4, Free (Free Thyroxine) 1.5 ng/dL (0.80-1.80)
== END | disposition home or self-care (01) ==
LOC: LABWHC1 09:58
PROVIDERS: ATTEND Internal Medicine Endocrinology, Diabetes & Metabolism
DX: E78.00 Pure hypercholesterolemia, unspecified (principal); E89.0 Postprocedural hypothyroidism; E55.9 Vitamin D deficiency, unspecified
CPT/HCPCS: 36415; 80061; 84439; 84443; 84450; 84460

== ENCOUNTER → 2021-01-09 | Outpatient (CLI) | payer MEDICAID ==
[2021-01-10 02:36] LABS: T4, Free (Free Thyroxine) 1.5 ng/dL (0.80-1.80)
== END | disposition home or self-care (01) ==
LOC: LABWHC1 10:18
PROVIDERS: ATTEND Internal Medicine Endocrinology, Diabetes & Metabolism
DX: E55.9 Vitamin D deficiency, unspecified (principal); E89.0 Postprocedural hypothyroidism
CPT/HCPCS: 36415; 82306; 84439; 84443; 84481

== ENCOUNTER → 2021-06-26 | Outpatient (CLI) | payer MEDICAID ==
[2021-06-26 15:41] LABS: ALT 39 U/L (8-44); AST 34 U/L (13-35); African American GFR (CKD) 95.1 (60.0-200.0); Albumin 4.6 g/dL (3.8-4.9); Albumin/Globulin Ratio 1.91 (1.60-3.17); Alkaline Phosphatase 103 U/L (41-126); BUN/Creat Ratio 23.16 Ratio (12.00-20.00); Blood Urea Nitrogen 18.6 mg/dL (9.0-27.0); Calcium 9.6 mg/dL (8.7-10.3); Carbon Dioxide 26.3 mmol/L (20.0-27.5); Chloride 106 mmol/L (96-109); Chol/HDL Ratio 1.92 Ratio; Globulin 2.4 g/dL (1.6-3.3); Glucose 86 mg/dL (70-110); Sodium 143 mmol/L (135-145)
== END | disposition home or self-care (01) ==
LOC: LABWHC1 09:49
PROVIDERS: ATTEND Internal Medicine Endocrinology, Diabetes & Metabolism
DX: E55.9 Vitamin D deficiency, unspecified (principal); E89.0 Postprocedural hypothyroidism; E78.00 Pure hypercholesterolemia, unspecified; I10 Essential (primary) hypertension
CPT/HCPCS: 36415; 80053; 80061; 82306; 84439; 84443; 84481

== ENCOUNTER → 2021-10-05 | Outpatient (CLI) | payer MEDICAID ==
[2021-10-05 23:24] LABS: T4, Free (Free Thyroxine) 1.62 ng/dL (0.800-1.800)
== END | disposition home or self-care (01) ==
LOC: LABWHC1 14:52
PROVIDERS: ATTEND Internal Medicine Endocrinology, Diabetes & Metabolism
DX: E55.9 Vitamin D deficiency, unspecified (principal); E89.0 Postprocedural hypothyroidism
CPT/HCPCS: 36415; 84439; 84443; 84481

== ENCOUNTER → 2021-11-27 | Outpatient (CLI) | payer MEDICAID ==
--- NOTE | 2021-11-28 04:47 | MR ---
EXAMINATION TYPE: MR ankle RT wo/w con DATE OF EXAM: 11/27/2021 COMPARISON: None HISTORY: PAIN IN RIGHT FOOT/ANKLE, PLANTAR FASCIAL FIBROMATOSIS, MARKED AREA OF INTEREST CONTRAST: Standard multiplanar, multisequence MRI departmental protocol images were obtained without contrast a nd with 6 mL intravenous Gadavist gadolinium contrast. The Achilles tendon is intact. Ankle mortise is anatomic. The collateral ligaments appear intact. The medial and lateral flexor tendons of the ankle are intact. There is abnormal increased signal on the STIR images in the plantar muscles of the mid foot. I see n o definite soft tissue mass. Ankle joint space is fairly normal. Distal tibia and fibula appear intac t. There is some pathologic soft tissue enhancement in the plantar aspect of the medial midfoot. This is the area of concern. This is consistent with an inflammatory reaction. IMPRESSION: Increased signal in the medial musculature of the mid foot consistent with some nonspecific myositis. No discrete fluid collection. subcutaneous edema in the plantar soft tissues of the midfoot.
== END | disposition home or self-care (01) ==
LOC: RADMRIMAIN 11:12
PROVIDERS: ATTEND Podiatrist
DX: D21.21 Benign neoplasm of connective and other soft tissue of right lower limb, including hip (principal); M72.2 Plantar fascial fibromatosis
CPT/HCPCS: 73723; A9585

== ENCOUNTER → 2022-03-31 | Outpatient (CLI) | payer OTHER ==
--- NOTE | 2022-03-31 16:31 | XR ---
EXAMINATION TYPE: XR shoulder complete 3 views RT DATE OF EXAM: 03/31/2022 Comparison: Prior CT chest 11/08/2014. Clinical History: 56-year-old female S46.911A STRAIN UNSP MUSC/FASC/TEND AT SHLDR/UP AR Findings: No acute fracture, subluxation, dislocation seen. Lobulated subpleural soft tissue lateral right uppe r lobe measuring 3.8 x 1.8 cm. Impression: 1. No acute osseous abnormality seen. 2. Lobulated subpleural soft tissue lateral right upper lobe measuring 3.8 x 1.8 cm. There appears to have been a corresponding lesion on the 11/08/[address] CT[address] Nonemergent follow-up CT chest to ensure stabi lity and to exclude indolent neoplasm.
== END | disposition home or self-care (01) ==
LOC: RADXRMAIN 16:08
PROVIDERS: ATTEND Emergency Medicine
DX: S46.911A Strain of unspecified muscle, fascia and tendon at shoulder and upper arm level, right arm, initial encounter (principal); X58.XXXA Exposure to other specified factors, initial encounter

== ENCOUNTER → 2022-04-16 | Outpatient (CLI) | payer MEDICAID ==
--- NOTE | 2022-04-16 07:58 | CT ---
EXAMINATION TYPE: CT chest w con DATE OF EXAM: 04/16/2022 COMPARISON: 11/08/2014 HISTORY: Abnormal finding on shoulder xray. Patient having no complaints at this time. CT DLP: 224.3 mGycm Automated exposure control for dose reduction was used. CONTRAST: CT scan of the chest is performed with IV Contrast, patient injected with 100ml mL of Isovue 300. FINDINGS: LUNGS: Again noted is a right upper lobe pleural-based mass laterally measuring 2.7 x 2.0 cm versus 2 .1 x 1.4 cm previously. This likely reflects a lipoma however given interval enlargement consider PET CT correlation. The remainder of the lungs are clear subpleural scarring remains stable. There is no evidence for infiltrate. No volume loss or consolidation. No pleural effusion. MEDIASTINUM: There are no greater than 1 cm hilar or mediastinal lymph nodes. No pericardial effusi on is seen. Thoracic aorta is of normal caliber. The heart is not enlarged. UPPER ABDOMEN: No significant abnormality appreciated. OTHER: Bilateral saline implants are intact. Mild hepatic steatosis. IMPRESSION: 1. Right upper lobe pleural-based mass measuring 2.7 x 2.0 cm versus 2.1 x 1.4 cm previously. This li salma reflects a lipoma however given interval enlargement consider PET CT correlation.
== END | disposition home or self-care (01) ==
LOC: RADCTMAIN 06:53
PROVIDERS: ATTEND Family Medicine
DX: R91.8 Other nonspecific abnormal finding of lung field (principal)
CPT/HCPCS: 71260; Q9967

== ENCOUNTER → 2022-04-16 | Outpatient (CLI) | payer OTHER ==
--- NOTE | 2022-04-16 11:47 | MR ---
EXAMINATION TYPE: MR shoulder RT wo con DATE OF EXAM: 04/16/2022 COMPARISON: Radiograph 03/31/2022 HISTORY: 56-year-old female S46.91D, right shoulder pain . TECHNIQUE: Multiplanar, multisequence imaging of the right shoulder is performed without contrast. FINDINGS: Partially visualized elongated cystic-appearing lesion measuring 4.5 x 1.0 cm along the right lateral upper pleura. This does not show internal fat density to reflect lipoma as was suggested on the astrid ent's CT chest of 04/16/2022. Monitoring is recommended. Consider contrast enhanced MRI to assess for any enhancement, in which case a cystic schwannoma is a possibility. Other etiologies not excluded at this time. Long head biceps tendon appears intact and appropriately situated along the bicipital groove. Mild te nosynovial fluid along the bicipital groove. Heterogeneous thickening of the subscapularis tendon. The tendon appears intact. Mild to moderate degenerative joint space narrowing with marginal spurring at the acromioclavicular j oint. Slight contact of the distal clavicle with the underlying myotendinous junction of the supraspi natus. There is bursal sided fraying throughout the supraspinatus and infraspinatus tendons. There is a full-thickness defect involving the mid supraspinatus tendon fibers measuring 5 mm long an d 8 mm AP. The full-thickness tear is located at the medial margin of the greater tuberosity enthesis .. Marked diffuse heterogeneity of both supraspinatus and infraspinatus tendons. There is personally sha llow bursal sided tear at the junction of the infraspinatus and supraspinatus tendons located below t he acromion measuring 1.2 cm elongated 9 mm AP. Small glenohumeral joint effusion especially collecting along the superior subscapularis recess. Ther e is edematous change in soft tissue replacement within the rotator cuff interval possibly relating t o synovitis. No abnormal thickening of the axillary recess. No discrete labral tear given nonarthrogr aphic technique and no paralabral cyst. Mild to moderate fluid within the subacromial/subdeltoid bursa. No atrophy of the rotator cuff musculature. No Hill-Sachs deformity or os acromiale. No suspicious bone marrow replacement. IMPRESSION: 1. Marked diffuse rotator cuff tendinosis. There is a full-thickness tear of the mid supraspinatus te ndon fibers located at the medial margin of the greater tuberosity enthesis measuring 8 x 5 mm. No ro tator cuff muscle atrophy. 2. Bursal sided fraying along both supraspinatus and infraspinatus tendons. Shallow bursal sided tear measuring 1.2 x 0.9 cm at the junction of these two tendons located below the acromion. 3. Mild to moderate AC joint OA. There may be slight impingement on the underlying cuff. 4. Soft tissue replacement in the rotator cuff interval; possible synovitis. 5. Incidental: Lobulated cystic-appearing lesion measuring at least 4.5 x 1.0 cm along the right late ral upper pleura. This does not show internal fat density to reflect lipoma (as was a consideration o n the patient's CT chest of 04/16/2022). Monitoring is recommended given increasing size. MRI of the c hest without and with contrast can be considered to assess for any enhancement in which case a cystic schwannoma is possible. Other etiologies not excluded at this time.
== END | disposition home or self-care (01) ==
LOC: RADMRIMAIN 05:41
PROVIDERS: ATTEND Emergency Medicine
DX: S46.911D Strain of unspecified muscle, fascia and tendon at shoulder and upper arm level, right arm, subsequent encounter (principal); M19.011 Primary osteoarthritis, right shoulder; M75.91 Shoulder lesion, unspecified, right shoulder

== ENCOUNTER → 2022-05-19 | Outpatient (CLI) | payer OTHER ==
[2022-05-19 23:48] LABS: Anion Gap 13.3 mmol/L (10.00-18.00); Carbon Dioxide 25.7 mmol/L (20.0-27.5); Potassium 3.9 mmol/L (3.5-5.5)
[2022-05-20 01:06] LABS: Basophils # (A) 0.05 X 10*3/uL (0.00-0.10); Basophils % (A) 0.6 %; Eosinophils # (A) 0.47 X 10*3/uL (0.04-0.35); Eosinophils % (A) 5.8 %; HCT 40.3 % (37.2-46.3); HGB 13.2 g/dL (12.0-15.0); Immature Grans, Automated 0.2 %; Lymphocytes # (A) 2.51 X 10*3/uL (0.90-5.00); Lymphocytes % (A) 31.2 %; MCH 26.2 pg (27.0-32.0); MCHC 32.8 g/dL (32.0-37.0); MCV 80.1 fL (80.0-97.0); Mean Platelet Volume 11.1 fL (9.5-12.2); NRBC Per 100 WBC 0 /100 WBCS (0.0-0.0); Neutrophils # (A) 4.19 X 10*3/uL (1.80-7.70); Neutrophils % (A) 52.2 %; Platelet Count 273 X 10*3/uL (140-440); RBC 5.03 X 10*6/uL (4.10-5.20); RDW 14.6 % (11.5-14.5); WBC 8.04 X 10*3/uL (4.50-10.00)
== END | disposition home or self-care (01) ==
LOC: LABPAT 14:44
PROVIDERS: ATTEND Orthopaedic Surgery
DX: Z01.818 Encounter for other preprocedural examination (principal); I42.2 Other hypertrophic cardiomyopathy; I45.19 Other right bundle-branch block; I27.9 Pulmonary heart disease, unspecified; M75.41 Impingement syndrome of right shoulder; R94.31 Abnormal electrocardiogram [ECG] [EKG]
CPT/HCPCS: 80051; 85025; 93005

== ENCOUNTER 2022-06-03 07:09 | Day surgery (SDC) | payer MEDICAID, OTHER ==
[2022-05-31 15:35] VITALS: BMI 24.7
--- NOTE | 2022-06-02 17:59 | HP ---
HISTORY AND PHYSICAL DATE OF SURGERY: 06/03/2022. HISTORY OF PRESENT ILLNESS: Shawna Castaneda is a 56-year-old patient, seen with progressive right shoulder pain. We discussed options for treatment. She elected to proceed with right shoulder arthroscopy. Consent was obtained. PAST MEDICAL HISTORY: Hypertension, hyperlipidemia, hypothyroidism. PAST SURGICAL HISTORY: Breast augmentation, hand surgery, sinus surgery, neck surgery. DAILY MEDICATIONS: 1. Flexeril. 2. Hydrochlorothiazide. 3. Lipitor. 4. Losartan. 5. Synthroid. ALLERGIES: None. SOCIAL HISTORY: She denies tobacco use. PHYSICAL EVALUATION OF THE RIGHT SHOULDER: Flexion is 140 degrees, abduction is 110 degrees, external rotation is 50 degrees with pain and weakness. Tenderness along the anterolateral acromion and rotator cuff insertion. Impingement is positive at 90. Positive cross-body adduction sign. Positive drop-arm sign. Distal neurovascular exam intact. RADIOGRAPHS: Right shoulder radiographs failed to reveal any osseous abnormalities. MRI of the right shoulder revealed a rotator cuff tear and impingement. IMPRESSION: 1. Right shoulder impingement with rotator cuff tear. 2. Hypertension. 3. Hyperlipidemia. PLAN: Right shoulder arthroscopy with subacromial decompression, arthroscopic rotator cuff repair and debridement. MMODL / IJN: [id number] /
[~2022-06-03 07:09] MED LIST changes: +DEXAMETHASONE SOD PHOSPHATE 4 MG/ML 1 ML VIAL IV ONE; +HYDROmorphone 0.5 MG/0.5 ML SYRINGE IVP PRN; +ONDANSETRON 4 MG/2 ML VIAL IVP ONE
[2022-06-03 07:40] VITALS: RESP 16
[2022-06-03] MEDS ORDERED: MIDAZOLAM 2 MG/2 ML VIAL IVP ONE (08:50)
[2022-06-03] MEDS ORDERED: fentaNYL (PF) 50 MCG/1 ML VIAL IVP ONE (08:50)
[2022-06-03] MEDS ORDERED: PROPOFOL 10 MG/ML 20 ML VIAL IV ONE (09:40)
[2022-06-03] MEDS ORDERED: ROPIVACAINE 5 MG/ML 30 ML VIAL ONE (09:40)
[2022-06-03] MEDS ORDERED: SUCCINYLCHOLINE CHLORIDE 200 MG/10 ML VIAL IV ONE (09:40)
[2022-06-03] MEDS ORDERED: ePHEDrine 50 MG/ML 1 ML VIAL ONE (09:40)
[2022-06-03] MEDS ORDERED: LIDOCAINE 2% INJ 20 MG/ML (2 ML VIAL) ONE (09:40)
[2022-06-03] MEDS ORDERED: fentaNYL (PF) 50 MCG/ML 2 ML AMP ONE (09:40)
--- NOTE | 2022-06-03 09:47 | P.ANPRN ---
Procedure Note - Anesthesia - Nerve Block Performed Right Interscalene Single Time Out Performed: Yes ([id number]) Date of Procedure: 06/03/22 Procedure Start Time: 08:50 Procedure Stop Time: 08:55 Location of Patient: PreOp Indication: Acute Post-Operative Pain, Requested by Surgeon Specifically requested for management of pain by DrRicardo: Jamaal Badillo (\) Sedation Type: Sedate with meaningful contact maintained Preparation: Sterile Prep Position: Supine Catheter: None Needle Types: Pajunk Needle Gauge: 21 Ultrasound used to visualize needle placement: Yes Ultrasound used to observe medication spread: Yes Injectate: 0.5% Ropivacaine (see comment for volume) (30cc) Blood Aspirated: No Pain Paresthesia on Injection Noted: No Resistance on Injection: Normal Image Stored and Saved: Yes Events: Uneventful and Well Tolerated
[2022-06-03] MEDS ORDERED: LACTATED RINGERS 1,000 ML IV ONE (11:00)
--- NOTE | 2022-06-03 11:32 | P.OP ---
Date of Procedure: 06/03/22 Preoperative Diagnosis: Right shoulder impingement Postoperative Diagnosis: 1. Right shoulder rotator cuff tear 2. Right shoulder impingement 3. Right shoulder acromioclavicular joint osteoarthritis 4. Right shoulder partial long head biceps tendon tear Procedure(s) Performed: 1. Right shoulder arthroscopic rotator cuff repair 2. Right shoulder arthroscopic subacromial decompression 3. Right shoulder arthroscopic Dalton procedure 4. Right shoulder arthroscopic biceps tenotomy Implants: 44.75 Arthrex swivel lock anchors Anesthesia: GETA, regional (Interscalene block) Surgeon: Jamaal Badillo Scrubber System Attendant #1: Jay Mariee Estimated Blood Loss (ml): 7 Pathology: none sent Condition: stable Disposition: PACU Indications for Procedure: 56-year-old patient seen with progressive right shoulder pain. After having treatment options discussed, she elected to proceed with arthroscopy. Operative Findings: See description of procedure Description of Procedure: Patient underwent an interscalene block by department of anesthesia. The patient was then taken to the operative suite. The patient underwent a general anesthetic by the department of anesthesia. The patient was placed into a lateral position and secured. There was appropriate padding of the bony prominence. Right shoulder was then prepped and draped in normal sterile orthopedic fashion. We placed the extremity in 10 pounds of longitudinal traction. A posterior incision was now made for a posterior working portal site. The trocar and cannula were inserted into the glenohumeral joint. Arthroscopy was initiated. Spinal needle was now inserted anteriorly, to ascertain the anterior working portal site. An incision was now made in that area, a trocar was inserted followed by a probe. There was some partial tearing long head biceps tendon with hyperemia. There was no significant chondromalacia present. The labrum appeared somewhat frayed anteriorly. I debrided that superficial fraying of the labrum. I performed a arthroscopic biceps tenotomy. The residual labrum was probed and was found to be stable. Instruments were now removed from glenohumeral joint. Utilizing the posterior working portal site, the trocar and cannula were inserted into the subacromial space. Arthroscopy initiated. I made an incision 2 fingerbreadths lateral to the acromion. I introduced my trocar followed by my ArthroCare ablator. I now began ablating thick subacromial bursal tissue, which exposed the undersurface of the anterior acromion. There was diminished subacromial space. There was a very prominent anterior acromion. A motorized bur was introduced and a subacromial decompression was performed. I also excised some osteophytes off the inferior aspect of the distal clavicle. The AC joint was visualized and noted to be fairly arthritic. The motorized bur was introduced in the anterior portal site and a Dalton procedure was performed without difficulty, decompressing the AC joint nicely. I turned my attention to the rotator cuff. There was a 2.53 cm rotator cuff tear. I debrided the margins getting down to stable tendon tissue. I introduced my motorized bur and abraded the footprint area, getting some petechial bleeding. I now made an accessory portal site off the lateral aspect of the acromion. I punched 2 holes medial for medial row fixation with the assistance of Dragan PICKARD carefully tapping the punch with a mallet as I held the punch and the camera. I now introduced both anchors into the pre-punched holes and Dragan PICKARD tapped them with the mallet as I held anchors and the camera. Dragan PICKARD now screwed the anchors in place a while I held the anchor guide and camera. All 8 limbs of suture were now passed through good bites of rotator cuff tendon. I now punched 2 holes for lateral row fixation again I held the punch and camera while Dragan PICKARD used a mallet to tap in the punch. We now passed sutures through both anchors and individually I introduced the anchors into the pre- punch holes I held the anchor guide in position with one hand holding the camera with the other hand while Drgaan PICKARD tensioned the sutures and screwed in the anchors one at a time. All residual suture limbs were now clipped. We had good compression of the tendon along the entire footprint. Instruments now removed from the portal sites. All portal sites were approximated with nylon suture. Sterile dressings were applied followed by a shoulder immobilizer. Jay PICKARD assisted in this complex case. The patient was awakened, transferred to a bed, and taken to recovery in stable condition.
[2022-06-03 12:00] VITALS: TEMP 97
[2022-06-03 13:25] VITALS: BP 130/72; PULSE 81
== END 2022-06-03 13:26 | disposition home or self-care (01) ==
LOC: OR 07:09
PROVIDERS: ATTEND Orthopaedic Surgery
DX: M75.111 Incomplete rotator cuff tear or rupture of right shoulder, not specified as traumatic (principal); M19.011 Primary osteoarthritis, right shoulder; M75.41 Impingement syndrome of right shoulder; S46.101A Unspecified injury of muscle, fascia and tendon of long head of biceps, right arm, initial encounter; M25.711 Osteophyte, right shoulder; G89.18 Other acute postprocedural pain; I10 Essential (primary) hypertension; E78.5 Hyperlipidemia, unspecified; E03.9 Hypothyroidism, unspecified; Z98.890 Other specified postprocedural states; Z79.01 Long term (current) use of anticoagulants; Z79.890 Hormone replacement therapy; Z79.899 Other long term (current) drug therapy; Z79.891 Long term (current) use of opiate analgesic; Z98.82 Breast implant status; Z86.73 Personal history of transient ischemic attack (TIA), and cerebral infarction without residual deficits
CPT/HCPCS: 64415; 76942; 29824; 29826; 29827; 29828; C1894; C1713; J2250; J0330; J1100; J2405; J0690; J3010 ×2; J2795; J2704; J2001